=== PATIENT | female | born 1990 | race Caucasian/White ===

== ENCOUNTER 2016-05-01 19:25 | Emergency (ER) | payer OTHER ==
[2016-05-01 20:57] VITALS: BP 122/68; PULSE 93; RESP 16; TEMP 97.4
[2016-05-01 21:08] LABS: Appearance,Urine Clear (Clear); Bacteria,Urine Rare /hpf; Bilirubin,Urine Negative (Negative); Glucose,Urine (UA) Negative (Negative); Ketones,Urine Trace (Negative); Leukocyte Esterase,Urine Trace (Negative); Mucus,Urine Many /hpf; Nitrite,Urine Negative (Negative); PH, Urine 5.5 (5.0-8.0); Particle Count 6431; Protein,Urine Trace (Negative); RBC,Urine 7 /hpf (0-5); Specific Gravity,Urine 1.021 (1.001-1.035); Squamous Epithelial Cell,Urine 3 /hpf (0-4); UA Billing (MACRO vs. MICRO) MICRO; WBC,Urine 1 /hpf (0-5)
[2016-05-01] MEDS ORDERED: AMITRIPTYLINE HCL 50 MG TAB PO STA (21:08)
[2016-05-01] MEDS ORDERED: HYDROcodone/APAP 5-325MG 1 EACH TAB PO STA (21:09)
[2016-05-01] MEDS ORDERED: LORazepam 1 MG TAB PO STA (21:09)
--- NOTE | 2016-05-01 21:17 | ED ---
General Adult HPI - General Chief complaint: Recheck/Abnormal Lab/Rx Stated complaint: fibromyalgia,IBS Time Seen by Provider: 05/01/16 20:37 Source: patient, RN notes reviewed Mode of arrival: wheelchair Limitations: no limitations - History of Present Illness Initial comments: Peripheral female presents emergency Department chief complaint of interstitial cystitis. Patient states she has a chronic problem. Patient states that she is in between urologist at this time as she states her previous left the practice. Patient states she has an appointment in [facility] specialist. Patient states her point on Thursday. Patient states that she started having pain earlier today very consistent with her symptoms. Patient states she has been out of her medications which includes Vesicare, Elavil and tramadol patient has no nausea vomiting diarrhea constipation. Patient states that she has dysuria. No fevers no chills. No vaginal bleeding or vaginal discharge. Patient denies any chance . - Related Data Home Medications Medication Instructions Recorded Confirmed Acyclovir 2,000 mg PO DAILY PRN 05/01/16 05/01/16 Amitriptyline HCl [Elavil] 50 mg PO HS 05/01/16 05/01/16 Diazepam [Valium] 10 mg VAGINAL BID PRN 05/01/16 05/01/16 Lidocaine 5% Patch [Lidoderm] 1 patch TOPICAL DAILY PRN 05/01/16 05/01/16 Ondansetron [Zofran ODT] 4 mg PO BID PRN 05/01/16 05/01/16 Pnv with Ca,No.72/Iron/FA 1 tab PO DAILY 05/01/16 05/01/16 [ Plus Tablet] Polyethylene Glycol 3350 [Miralax] 17 gm PO DAILY 05/01/16 05/01/16 Previous Rx's Medication Instructions Recorded Solifenacin Succinate [Vesicare] 10 mg PO DAILY #30 tablet 03/18/15 Amitriptyline HCl [Elavil] 50 mg PO HS #7 tablet 05/01/16 Hydrocodone/Acetaminophen [[place] 1 tab PO Q6HR PRN #15 tab 05/01/16 5-325] Solifenacin Succinate [Vesicare] 10 mg PO DAILY #5 tablet 05/01/16 Allergies Allergy/AdvReac Type Severity Reaction Status Date / Time Penicillins Allergy Anaphylaxis Verified 05/01/16 20:38 Review of Systems ROS Statement: Those systems with pertinent positive or pertinent negative responses have been documented in the HPI. ROS Other: All systems not noted in ROS Statement are negative. Past Medical History Past Medical History: Fibromyalgia Additional Past Medical History / Comment(s): IBS interstitial cystitis History of Any Multi-Drug Resistant Organisms: None Reported Past Surgical History: No Surgical Hx Reported Additional Past Surgical History / Comment(s): bladder surgery x3, Past Psychological History: Anxiety, Bipolar, Depression Smoking Status: Never smoker Past Alcohol Use History: None Reported Past Drug Use History: Marijuana General Exam Limitations: no limitations General appearance: alert, in no apparent distress Head exam: Present: atraumatic, normocephalic, normal inspection Respiratory exam: Present: normal lung sounds bilaterally. Absent: respiratory distress, wheezes, rales, rhonchi, stridor Cardiovascular Exam: Present: regular rate, normal rhythm, normal heart sounds. Absent: systolic murmur, diastolic murmur, rubs, gallop, clicks GI/Abdominal exam: Present: soft, tenderness (Mild suprapubic), normal bowel sounds. Absent: distended, guarding, rebound, rigid Back exam: Absent: CVA tenderness (R), CVA tenderness (L) Course Vital Signs 05/01/16 05/01/16 19:45 20:56 Temperature 97.8 F 97.4 F L Pulse Rate 100 93 Respiratory 18 16 Rate Blood Pressure 133/63 122/68 O2 Sat by Pulse 100 100 Oximetry Medical Decision Making - Medical Decision Making Patient states that she has I see. Patient urinalysis does show blood consistent with her previous urinalysis. Patient be given pain medication at discharge. - Lab Data Lab Results 05/01/16 Range/Units 20:45 Urine Color Yellow Urine Appearance Clear (Clear) Urine pH 5.5 (5.0-8.0) Ur Specific [place] 1.021 (1.001-1.035) Urine Protein Trace H (Negative) Urine Glucose (UA) Negative (Negative) Urine Ketones Trace H (Negative) Urine Blood Small H (Negative) Urine Nitrate Negative (Negative) Urine Bilirubin Negative (Negative) Urine Urobilinogen 2.0 (<2.0) mg/dL Ur Leukocyte Esterase Trace H (Negative) Urine RBC 7 H (0-5) /hpf Urine WBC 1 (0-5) /hpf Ur Squamous Epith Cells 3 (0-4) /hpf Urine Bacteria Rare H (None) /hpf Urine Mucus Many H (None) /hpf Disposition Clinical Impression: Interstitial cystitis Disposition: HOME SELF-CARE Condition: Stable Instructions: Interstitial Cystitis (ED) Additional Instructions: Please return to the Emergency Department if symptoms worsen or any other concerns. Prescriptions: Amitriptyline HCl [Elavil] 50 mg PO HS #7 tablet Hydrocodone/Acetaminophen [[place] 5-325] 1 tab PO Q6HR PRN #15 tab PRN Reason: Pain Solifenacin Succinate [Vesicare] 10 mg PO DAILY #5 tablet Time of Disposition: 21:17
== END 2016-05-01 21:35 | disposition home or self-care (01) ==
LOC: EC 19:25
DX: N30.10 Interstitial cystitis (chronic) without hematuria (principal); M79.7 Fibromyalgia; F32.9 Major depressive disorder, single episode, unspecified; Z88.0 Allergy status to penicillin; Z79.899 Other long term (current) drug therapy
CPT/HCPCS: 81001; 99283

== ENCOUNTER 2016-09-27 22:47 | Emergency (ER) | payer OTHER ==
[2016-09-27] MEDS ORDERED: HYDROmorphone 2 MG/ML 1 ML SYRINGE IM STA (23:09)
[2016-09-27] MEDS ORDERED: IBUPROFEN 800 MG TAB PO STA (23:11)
[2016-09-27] MEDS ORDERED: LORazepam 1 MG TAB PO STA (23:11)
--- NOTE | 2016-09-27 23:13 | ED ---
General Adult HPI - General Chief complaint: Urogenital Stated complaint: Pelvic Pain Time Seen by Provider: 09/27/16 23:02 Source: patient, RN notes reviewed, old records reviewed Mode of arrival: wheelchair Limitations: no limitations - History of Present Illness Initial comments: This is a 26-year-old female ER for evaluation for this patient presents today for evaluation of pain. Patient is chronic pain, history of fibrosis or of interstitial cystitis history of back pain, history of autoimmune disease. Patient states she's used all conservative therapies at this time it is getting progressively worse. Fevers. Just complaining of increased generalized pain, back pain leg pain and pelvic pain. Denies dysuria, denies chance of , denies bleeding or discharge - Related Data Home Medications Medication Instructions Recorded Confirmed Acyclovir 2,000 mg PO DAILY PRN 05/01/16 05/01/16 Diazepam [Valium] 10 mg VAGINAL BID PRN 05/01/16 05/01/16 Lidocaine 5% Patch [Lidoderm] 1 patch TOPICAL DAILY PRN 05/01/16 05/01/16 Ondansetron [Zofran ODT] 4 mg PO BID PRN 05/01/16 05/01/16 Polyethylene Glycol 3350 [Miralax] 17 gm PO DAILY 05/01/16 05/01/16 Previous Rx's Medication Instructions Recorded Solifenacin Succinate [Vesicare] 10 mg PO DAILY #30 tablet 03/18/15 Amitriptyline HCl [Elavil] 50 mg PO HS #7 tablet 05/01/16 HYDROcodone/APAP 5-325MG [[place] 1 tab PO Q6HR PRN #30 tab 09/27/16 5-325] Allergies Allergy/AdvReac Type Severity Reaction Status Date / Time Penicillins Allergy Anaphylaxis Verified 05/01/16 20:38 Review of Systems ROS Statement: Those systems with pertinent positive or pertinent negative responses have been documented in the HPI. ROS Other: All systems not noted in ROS Statement are negative. Past Medical History Past Medical History: Fibromyalgia Additional Past Medical History / Comment(s): IBS interstitial cystitis History of Any Multi-Drug Resistant Organisms: None Reported Past Surgical History: No Surgical Hx Reported Additional Past Surgical History / Comment(s): bladder surgery x3, Past Psychological History: Anxiety, Bipolar, Depression Smoking Status: Never smoker Past Alcohol Use History: None Reported Past Drug Use History: Marijuana General Exam Limitations: no limitations General appearance: alert, in no apparent distress, anxious Head exam: Present: atraumatic, normocephalic, normal inspection Eye exam: Present: normal appearance, PERRL, EOMI. Absent: scleral icterus, conjunctival injection, periorbital swelling ENT exam: Present: normal exam, mucous membranes moist Neck exam: Present: normal inspection. Absent: tenderness, meningismus, lymphadenopathy Respiratory exam: Present: normal lung sounds bilaterally. Absent: respiratory distress, wheezes, rales, rhonchi, stridor Cardiovascular Exam: Present: regular rate, normal rhythm, normal heart sounds. Absent: systolic murmur, diastolic murmur, rubs, gallop, clicks GI/Abdominal exam: Present: soft, normal bowel sounds. Absent: distended, tenderness, guarding, rebound, rigid Extremities exam: Present: normal inspection, full ROM, normal capillary refill. Absent: tenderness, pedal edema, joint swelling, calf tenderness Back exam: Present: normal inspection Neurological exam: Present: alert, oriented X3, CN II-XII intact Psychiatric exam: Present: normal affect, normal mood Skin exam: Present: warm, dry, intact, normal color. Absent: rash Course Vital Signs 09/27/16 23:02 Temperature 98.1 F Pulse Rate 86 Respiratory 20 Rate Blood Pressure 123/64 O2 Sat by Pulse 100 Oximetry - Reevaluation(s) Reevaluation #1: 09/27/16 23:13 Patient has adequate pain control at this time Medical Decision Making - Medical Decision Making 22 for female here for evaluation of chronic pain, cystitis, chronic back pain and pelvic pain in, patient will be given pain control, urinalysis, patient can be discharged home Disposition Clinical Impression: Interstitial cystitis, Chronic pain Disposition: HOME SELF-CARE Condition: Good Instructions: Chronic Pain (ED) Prescriptions: HYDROcodone/APAP 5-325MG [[place] 5-325] 1 tab PO Q6HR PRN #30 tab PRN Reason: Pain Referrals: Nonstaff,Physician [Primary Care Provider] - 1-2 days
[2016-09-27 23:45] LABS: Amorphous Sediment,Urine Occasional /hpf; Appearance,Urine Turbid (Clear); Bacteria,Urine Occasional /hpf; Bilirubin,Urine Negative (Negative); Glucose,Urine (UA) Negative (Negative); Ketones,Urine Trace (Negative); Leukocyte Esterase,Urine Small (Negative); Mucus,Urine Few /hpf; Nitrite,Urine Negative (Negative); Particle Count 14954; Protein,Urine Trace (Negative); RBC,Urine 5 /hpf (0-5); Specific Gravity,Urine 1.025 (1.001-1.035); Squamous Epithelial Cell,Urine 19 /hpf (0-4); UA Billing (MACRO vs. MICRO) MICRO; WBC,Urine 13 /hpf (0-5)
[2016-09-28 00:31] VITALS: BP 107/58; PULSE 75; RESP 18; TEMP 97.9
== END 2016-09-28 00:43 | disposition home or self-care (01) ==
LOC: EC 22:47
DX: N30.10 Interstitial cystitis (chronic) without hematuria (principal); Z88.0 Allergy status to penicillin; Z79.899 Other long term (current) drug therapy
CPT/HCPCS: 99284; 96372; 81001; 81025; 87086; J1170

== ENCOUNTER 2017-03-28 04:27 | Emergency (ER) | payer OTHER ==
[2017-03-28 04:37] VITALS: TEMP 97.8
--- NOTE | 2017-03-28 05:01 | ED ---
General Adult HPI - General Chief complaint: Urogenital Stated complaint: Vaginal Pain Time Seen by Provider: 03/28/17 04:30 Source: patient, RN notes reviewed, old records reviewed Mode of arrival: ambulatory Limitations: no limitations - History of Present Illness Initial comments: 27-year-old female with history of chronic interstitial cystitis and chronic vaginal pain and pelvic pain presents for evaluation of this pain and dysuria. Patient was recently diagnosed with urinary tract infection. She completed a course of antibiotics. Pain is been present for greater than 2 months. She does see a female urologist at [facility], she has received nerve blocks in the past. She currently is using marijuana products for her primary pain control. Denies any change in her bowel habits. Patient did state she had an episode of nausea and vomiting associated with the pain. No upper abdominal pain. Pain is constant and burning in nature. She has not had intercourse in the past 2 months. She has no concerns for STDs. - Related Data Home Medications Medication Instructions Recorded Confirmed Diazepam [Valium] 10 mg VAGINAL BID PRN 05/01/16 03/05/17 Ondansetron [Zofran ODT] 4 mg PO BID PRN 05/01/16 03/05/17 Cyclobenzaprine [Flexeril] 10 mg PO DAILY PRN 03/05/17 03/05/17 Magnesium Oxide [Mag-Ox] 250 mg PO DAILY 03/05/17 03/05/17 Previous Rx's Medication Instructions Recorded Amitriptyline HCl [Elavil] 50 mg PO HS #7 tablet 05/01/16 Ciprofloxacin HCl [Cipro] 500 mg PO Q12HR #14 tablet 03/05/17 HYDROcodone/APAP 7.5-325MG [[place] 1 tab PO Q4H PRN #12 tab 03/05/17 7.5-325] Ibuprofen [Motrin] 600 mg PO Q8HR PRN #24 tab 03/28/17 Allergies Allergy/AdvReac Type Severity Reaction Status Date / Time Penicillins Allergy Anaphylaxis Verified 03/28/17 04:29 Review of Systems ROS Statement: Those systems with pertinent positive or pertinent negative responses have been documented in the HPI. ROS Other: All systems not noted in ROS Statement are negative. Past Medical History Past Medical History: Fibromyalgia Additional Past Medical History / Comment(s): IBS , interstitial cystitis History of Any Multi-Drug Resistant Organisms: None Reported Past Surgical History: No Surgical Hx Reported Additional Past Surgical History / Comment(s): bladder surgery x3, Past Psychological History: Anxiety, Bipolar, Depression Smoking Status: Never smoker Past Alcohol Use History: None Reported Past Drug Use History: Marijuana General Exam Limitations: no limitations General appearance: alert, in no apparent distress Head exam: Present: atraumatic, normocephalic Eye exam: Present: normal appearance, PERRL ENT exam: Present: normal exam Neck exam: Present: normal inspection. Absent: tenderness, meningismus Respiratory exam: Present: normal lung sounds bilaterally. Absent: respiratory distress Cardiovascular Exam: Present: regular rate, normal rhythm GI/Abdominal exam: Present: soft, tenderness (Suprapubic tenderness). Absent: distended, guarding, rebound External exam: Present: normal external exam. Absent: erythema, swelling Speculum exam: Absent: vaginal bleeding, tissue, laceration By manual exam: Present: other (Severe discomfort during the examination) Extremities exam: Present: normal inspection, normal capillary refill. Absent: pedal edema Neurological exam: Present: alert, oriented X3, CN II-XII intact. Absent: motor sensory deficit Psychiatric exam: Present: normal affect, normal mood Skin exam: Present: warm, dry, intact. Absent: cyanosis, diaphoretic Course Vital Signs 03/28/17 04:29 Temperature 97.8 F Pulse Rate 104 H Respiratory 17 Rate Blood Pressure 103/61 O2 Sat by Pulse 99 Oximetry Medical Decision Making - Medical Decision Making 27-year-old with chronic pelvic pain and chronic interstitial cystitis presents with similar pain complaint. She is unable to see her urologist secondary to the holiday. Urinalysis is obtained, there is rare bacteria, no leukocyte esterase, no white blood cells or red blood cells in the urine, urine culture is obtained and will await these results. Patient is given intramuscular Toradol in the emergency department. She is given a prescription for Motrin. She will continue her home remedies and follow up with her urologist in the next several days. - Lab Data Lab Results 03/28/17 03/28/17 Range/Units 04:45 04:45 Urine Color Yellow Urine Appearance Cloudy H (Clear) Urine pH 5.5 (5.0-8.0) Ur Specific [place] 1.021 (1.001-1.035) Urine Protein Trace H (Negative) Urine Glucose (UA) Negative (Negative) Urine Ketones Negative (Negative) Urine Blood Small H (Negative) Urine Nitrite Negative (Negative) Urine Bilirubin Negative (Negative) Urine Urobilinogen <2.0 (<2.0) mg/dL Ur Leukocyte Esterase Negative (Negative) Urine RBC <1 (0-5) /hpf Urine WBC 1 (0-5) /hpf Ur Squamous Epith Cells 8 H (0-4) /hpf Calcium Oxalate Crystal Occasional H (None) /hpf Urine Bacteria Rare H (None) /hpf Urine Mucus Many H (None) /hpf Urine HCG, Qual Not Detected (Not Detectd) Disposition Clinical Impression: Interstitial cystitis, Pain in female pelvis Disposition: HOME SELF-CARE Condition: Good Instructions: Pelvic Pain in Women (ED) Additional Instructions: Patient will follow-up with her urologist [facility]. Prescriptions: Ibuprofen [Motrin] 600 mg PO Q8HR PRN #24 tab PRN Reason: Pain Referrals: Leann Chao DO [Primary Care Provider] - 1-2 days Time of Disposition: 05:49
[2017-03-28 05:42] LABS: Appearance,Urine Cloudy (Clear); Bacteria,Urine Rare /hpf; Bilirubin,Urine Negative (Negative); Blood,Urine Small (Negative); Calcium Oxalate Crystals,Urine Occasional /hpf; Color,Urine Yellow; Glucose,Urine (UA) Negative (Negative); Ketones,Urine Negative (Negative); Leukocyte Esterase,Urine Negative (Negative); Mucus,Urine Many /hpf; Nitrite,Urine Negative (Negative); PH, Urine 5.5 (5.0-8.0); Protein,Urine Trace (Negative); RBC,Urine <1 /hpf (0-5); Specific Gravity,Urine 1.021 (1.001-1.035); Squamous Epithelial Cell,Urine 8 /hpf (0-4); Urobilinogen,Urine <2.0 mg/dL (<2.0); WBC,Urine 1 /hpf (0-5)
[2017-03-28] MEDS ORDERED: KETOROLAC 30 MG/ML 1 ML VIAL IM STA (05:42)
[2017-03-28 05:57] VITALS: BP 102/49; PULSE 75; RESP 18
== END 2017-03-28 05:57 | disposition home or self-care (01) ==
LOC: EC 04:27
DX: N30.10 Interstitial cystitis (chronic) without hematuria (principal); R11.2 Nausea with vomiting, unspecified; Z79.899 Other long term (current) drug therapy; Z88.0 Allergy status to penicillin
CPT/HCPCS: 81001; 81025; 87086; 99284; 96372; J1885

== ENCOUNTER 2017-11-27 18:47 | Emergency (ER) | payer OTHER ==
--- NOTE | 2017-11-27 19:19 | ED ---
Psych HPI - General Chief Complaint: Psychiatric Symptoms Stated Complaint: Anxiety Time Seen by Provider: 11/27/17 18:58 Source: patient, RN notes reviewed, old records reviewed Mode of arrival: ambulatory - History of Present Illness Initial Comments: Patient is a 27-year-old female presents emergency department today chief complaint of severe anxiety. She reports that she's had some suicidal thoughts but no specific intent. Patient states she is in chronic pain due to her interstitial cystitis. She reports that she could not see her neurologist specialist this week due to them being on vacation. Without having her typical injection as well as being out of her at-home cannabis oils she's been having increasing pain. She also reports that today she came in and her boyfriend was cheating on her. She reports that with all the symptoms of physical pain plus emotional stress she cut her left arm. Patient reports that she does see multiple psychiatrist and psychologist. She reports she called [facility] AND NO ONE WAS ABLE TO BE AVAILABLE. SHE THEN THOUGHT WITH A RECENT CUTTING SHE SHOULD BE SEEN HERE. - Related Data Home Medications Medication Instructions Recorded Confirmed Diazepam [Valium] 10 mg VAGINAL BID PRN 05/01/16 03/05/17 Ondansetron [Zofran ODT] 4 mg PO BID PRN 05/01/16 03/05/17 Cyclobenzaprine [Flexeril] 10 mg PO DAILY PRN 03/05/17 03/05/17 Magnesium Oxide [Mag-Ox] 250 mg PO DAILY 03/05/17 03/05/17 Previous Rx's Medication Instructions Recorded Amitriptyline HCl [Elavil] 50 mg PO HS #7 tablet 05/01/16 Ciprofloxacin HCl [Cipro] 500 mg PO Q12HR #14 tablet 03/05/17 HYDROcodone/APAP 7.5-325MG [[place] 1 tab PO Q4H PRN #12 tab 03/05/17 7.5-325] Ibuprofen [Motrin] 600 mg PO Q8HR PRN #24 tab 03/28/17 Allergies Allergy/AdvReac Type Severity Reaction Status Date / Time Penicillins Allergy Anaphylaxis Verified 03/28/17 04:29 Review of Systems ROS Statement: Those systems with pertinent positive or pertinent negative responses have been documented in the HPI. ROS Other: All systems not noted in ROS Statement are negative. Past Medical History Past Medical History: Fibromyalgia Additional Past Medical History / Comment(s): IBS , interstitial cystitis History of Any Multi-Drug Resistant Organisms: None Reported Past Surgical History: No Surgical Hx Reported Additional Past Surgical History / Comment(s): bladder surgery x3, Past Psychological History: Anxiety, Bipolar, Depression Smoking Status: Never smoker Past Alcohol Use History: None Reported Past Drug Use History: Marijuana General Exam - General Exam Comments Initial Comments: Patient is a 27-year-old female. Alert and oriented. No significant distress. Patient does appear to be very anxious. Limitations: no limitations General appearance: alert, in no apparent distress Head exam: Present: atraumatic, normocephalic, normal inspection Eye exam: Present: normal appearance, PERRL, EOMI. Absent: scleral icterus, conjunctival injection, periorbital swelling ENT exam: Present: normal exam, mucous membranes moist Neck exam: Present: normal inspection. Absent: tenderness, meningismus, lymphadenopathy Respiratory exam: Present: normal lung sounds bilaterally. Absent: respiratory distress, wheezes, rales, rhonchi, stridor Cardiovascular Exam: Present: regular rate, normal rhythm, normal heart sounds. Absent: systolic murmur, diastolic murmur, rubs, gallop, clicks GI/Abdominal exam: Present: soft, normal bowel sounds. Absent: distended, tenderness, guarding, rebound, rigid Extremities exam: Present: normal inspection, full ROM, normal capillary refill , other (Is multiple superficial excoriations over the left forearm.). Absent: tenderness, pedal edema, joint swelling, calf tenderness Back exam: Present: normal inspection Neurological exam: Present: alert, oriented X3, CN II-XII intact Psychiatric exam: Present: normal mood, anxious. Absent: normal affect Skin exam: Present: warm, dry, intact, normal color. Absent: rash Course Vital Signs 11/27/17 18:52 Temperature 98.3 F Pulse Rate 102 H Respiratory 20 Rate Blood Pressure 109/65 O2 Sat by Pulse 100 Oximetry Medical Decision Making - Medical Decision Making 27-year-old female with history of anxiety presents today with chief complaint of anxiety and also pelvic pain. History of interstitial cystitis. This time urinalysis positive for blood. Consistent with IC. Discussed that I do not any narcotic pain medication. She was given 1 by mouth Ativan here after evaluated by EPS. She denies any suicidal intention. She's been under a lot of emotional stress with her family and boyfriend lately. Patient was evaluated by a PS and they feel the Patient is stable to be discharged home. At this time Patient will be discharged with close follow-up with her psychiatrist on Thursday. She'll be discharged with a friend. She is given IM Toradol for pain. Discussing Motrin and [id number] medication for pain this time. - Lab Data Lab Results 11/27/17 11/27/17 Range/Units 19:22 19:22 Urine Color Yellow Urine Appearance Cloudy H (Clear) Urine pH 5.5 (5.0-8.0) Ur Specific [place] 1.014 (1.001-1.035) Urine Protein Negative (Negative) Urine Glucose (UA) Negative (Negative) Urine Ketones Negative (Negative) Urine Blood Large H (Negative) Urine Nitrite Negative (Negative) Urine Bilirubin Negative (Negative) Urine Urobilinogen <2.0 (<2.0) mg/dL Ur Leukocyte Esterase Trace H (Negative) Urine RBC 23 H (0-5) /hpf Ur Squamous Epith Cells 1 (0-4) /hpf Urine Bacteria Rare H (None) /hpf Urine Mucus Rare H (None) /hpf Urine HCG, Qual Not Detected (Not Detectd) Urine Opiates Screen Detected H (NotDetected) Ur Oxycodone Screen Not Detected (NotDetected) Urine Methadone Screen Not Detected (NotDetected) Ur Propoxyphene Screen Not Detected (NotDetected) Ur Barbiturates Screen Not Detected (NotDetected) U Tricyclic Antidepress Detected H (NotDetected) Ur Phencyclidine Scrn Not Detected (NotDetected) Ur Amphetamines Screen Not Detected (NotDetected) U Methamphetamines Scrn Not Detected (NotDetected) U Benzodiazepines Scrn Detected H (NotDetected) Urine Cocaine Screen Not Detected (NotDetected) U Marijuana (THC) Screen Detected H (NotDetected) Disposition Clinical Impression: Anxiety, Interstitial cystitis (chronic) with hematuria Disposition: HOME SELF-CARE Condition: Good Instructions: Generalized Anxiety Disorder (ED) Additional Instructions: Patient adviseds follow-up with primary care physician and her specialist. Patient should keep that appointment on Thursday for psychiatrist. Return to the emergency department if any alarming signs or symptoms occur. Is patient prescribed a controlled substance at d/c from ED?: No Referrals: Leann Chao DO [Primary Care Provider] - 1-2 days Time of Disposition: 20:20
[2017-11-27 19:40] LABS: Appearance,Urine Cloudy (Clear); Bacteria,Urine Rare /hpf; Bilirubin,Urine Negative (Negative); Blood,Urine Large (Negative); Color,Urine Yellow; Glucose,Urine (UA) Negative (Negative); Ketones,Urine Negative (Negative); Leukocyte Esterase,Urine Trace (Negative); Mucus,Urine Rare /hpf; Nitrite,Urine Negative (Negative); PH, Urine 5.5 (5.0-8.0); Protein,Urine Negative (Negative); RBC,Urine 23 /hpf (0-5); Specific Gravity,Urine 1.014 (1.001-1.035); Squamous Epithelial Cell,Urine 1 /hpf (0-4); Urobilinogen,Urine <2.0 mg/dL (<2.0)
[2017-11-27] MEDS ORDERED: LORazepam 1 MG TAB PO STA (19:46)
[2017-11-27 19:53] LABS: Amphetamine Screen,Urine Not Detected (NotDetected); Barbiturate Screen,Urine Not Detected (NotDetected); Benzodiazepines Screen,Urine Detected (NotDetected); Cocaine Screen,Urine Not Detected (NotDetected); Methadone Screen, Urine Not Detected (NotDetected); Opiate Screen,Urine Detected (NotDetected); Oxycodone Screen, Urine Not Detected (NotDetected); Phencyclidine Screen,Urine Not Detected (NotDetected); Tricyclic Antidepressant,Urine Detected (NotDetected); Urn Cannabinoid Scrn Detected (NotDetected)
[2017-11-27] MEDS ORDERED: KETOROLAC 60 MG/2 ML VIAL IM STA (20:01)
[2017-11-27 20:43] VITALS: BP 112/84; PULSE 63; RESP 17; TEMP 98.2
== END 2017-11-27 20:43 | disposition home or self-care (01) ==
LOC: EC 18:47
DX: N30.11 Interstitial cystitis (chronic) with hematuria (principal); F41.9 Anxiety disorder, unspecified; S50.812A Abrasion of left forearm, initial encounter; R45.851 Suicidal ideations; Z63.79 Other stressful life events affecting family and household; Z88.0 Allergy status to penicillin; Z79.899 Other long term (current) drug therapy; X78.9XXA Intentional self-harm by unspecified sharp object, initial encounter
CPT/HCPCS: 99284 ×2; 96372 ×2; 81001; 81025; 80306; 87086; J1885

== ENCOUNTER 2018-02-15 18:32 | Emergency (ER) | payer OTHER ==
[2018-02-15 18:50] VITALS: TEMP 97.5
[2018-02-15] MEDS ORDERED: SODIUM CHLORIDE 0.9% 1,000 ML IV STA (21:30)
[2018-02-15] MEDS ORDERED: KETOROLAC 30 MG/ML 1 ML VIAL IVP STA (21:31)
[2018-02-15 22:05] LABS: Amorphous Sediment,Urine Rare /hpf; Appearance,Urine Cloudy (Clear); Bilirubin,Urine Negative (Negative); Blood,Urine Negative (Negative); Color,Urine Light Yellow; Glucose,Urine (UA) Negative (Negative); Ketones,Urine 1+ (Negative); Leukocyte Esterase,Urine Small (Negative); Mucus,Urine Rare /hpf; Nitrite,Urine Negative (Negative); PH, Urine 6.5 (5.0-8.0); Protein,Urine Negative (Negative); RBC,Urine 1 /hpf (0-5); Specific Gravity,Urine 1.006 (1.001-1.035); Squamous Epithelial Cell,Urine 3 /hpf (0-4); Urobilinogen,Urine <2.0 mg/dL (<2.0); WBC,Urine 3 /hpf (0-5)
[2018-02-15 22:36] LABS: Basophils % (A) 0 %; Eosinophils # (A) 0.1 k/uL (0-0.7); Eosinophils % (A) 1 %; HCT 40.4 % (34.0-46.0); HGB 13.1 gm/dL (11.4-16.0); Lymphocytes # (A) 2.9 k/uL (1.0-4.8); Lymphocytes % (A) 39 %; MCH 29.5 pg (25.0-35.0); MCHC 32.5 g/dL (31.0-37.0); MCV 90.5 fL (80.0-100.0); Mean Platelet Volume 6.6; Monocytes # (A) 0.4 k/uL (0-1.0); Monocytes % (A) 5 %; Neutrophils # (A) 3.9 k/uL (1.3-7.7); Neutrophils % (A) 53 %; Platelet Count 316 k/uL (150-450); RBC 4.46 m/uL (3.80-5.40); RDW 12.9 % (11.5-15.5); WBC 7.3 k/uL (3.8-10.6)
[2018-02-15 22:48] LABS: ALT 26 U/L (9-52); AST 35 U/L (14-36); Albumin 4.9 g/dL (3.5-5.0); Alkaline Phosphatase 78 U/L (38-126); Amylase <30 U/L (30-110); Anion Gap 11 mmol/L; Blood Urea Nitrogen 9 mg/dL (7-17); Calcium 10.3 mg/dL (8.4-10.2); Carbon Dioxide 24 mmol/L (22-30); Chloride 105 mmol/L (98-107); Glucose 75 mg/dL (74-99); Lipase 45 U/L (23-300); Potassium 4.8 mmol/L (3.5-5.1); Sodium 140 mmol/L (137-145); Total Bilirubin 0.6 mg/dL (0.2-1.3); Total Protein 7.7 g/dL (6.3-8.2)
[2018-02-15 23:27] LABS: Amphetamine Screen,Urine Not Detected (NotDetected); Barbiturate Screen,Urine Not Detected (NotDetected); Benzodiazepines Screen,Urine Detected (NotDetected); Cocaine Screen,Urine Not Detected (NotDetected); Methadone Screen, Urine Not Detected (NotDetected); Opiate Screen,Urine Not Detected (NotDetected); Oxycodone Screen, Urine Not Detected (NotDetected); Phencyclidine Screen,Urine Not Detected (NotDetected); Tricyclic Antidepressant,Urine Detected (NotDetected); Urn Cannabinoid Scrn Detected (NotDetected)
--- NOTE | 2018-02-15 23:55 | ED ---
General Adult HPI - General Chief complaint: Psychiatric Symptoms Stated complaint: pain all over Time Seen by Provider: 02/15/18 21:10 Source: patient Mode of arrival: ambulatory Limitations: no limitations - History of Present Illness Initial comments: 28-year-old female patient presents to the emergency department today with complaints of increased fibromyalgia and chronic interstitial cystitis pain and discomfort. Patient states that she is having generalized body aches and pain. States that she is also having some vaginal burning which is consistent with her usual symptoms from her interstitial cystitis. Patient states that she did start a new job and medication for anxiety and she is unsure if these things have exacerbated her symptoms. Patient states she has not taking anything for pain or discomfort. She states that she did develop some nausea and vomiting today. States that she vomited up a black substance this morning but denies any hematemesis. She has been able to keep down food and fluid. She denies any diarrhea with this. States she does have chronic constipation and does do enemas every 2 days for this. Patient also has an extensive psych history, states that she is having suicidal thoughts daily has no plan to take her life. Patient states that she generally has suicidal ideation on a daily basis. She does see Dr. Ferrari outpatient for management of her psychiatric medications. Patient denies any recent rash, shortness breath, chest pain, abdominal pain, back pain, numbness, tingling, dizziness, weakness, hematuria, dysuria, urinary urgency, urinary frequency, headache, visual changes, or any other complaints. She denies any abnormal vaginal bleeding or discharge. Denies any concern for sexually transmitted infections. - Related Data Home Medications Medication Instructions Recorded Confirmed Diazepam [Valium] 10 mg VAGINAL BID PRN 05/01/16 03/05/17 Ondansetron [Zofran ODT] 4 mg PO BID PRN 05/01/16 03/05/17 Cyclobenzaprine [Flexeril] 10 mg PO DAILY PRN 03/05/17 03/05/17 Magnesium Oxide [Mag-Ox] 250 mg PO DAILY 03/05/17 03/05/17 Previous Rx's Medication Instructions Recorded Amitriptyline HCl [Elavil] 50 mg PO HS #7 tablet 05/01/16 Ciprofloxacin HCl [Cipro] 500 mg PO Q12HR #14 tablet 03/05/17 HYDROcodone/APAP 7.5-325MG [[place] 1 tab PO Q4H PRN #12 tab 03/05/17 7.5-325] Ibuprofen [Motrin] 600 mg PO Q8HR PRN #24 tab 03/28/17 Allergies Allergy/AdvReac Type Severity Reaction Status Date / Time Penicillins Allergy Anaphylaxis Verified 02/15/18 22:09 Review of Systems ROS Statement: Those systems with pertinent positive or pertinent negative responses have been documented in the HPI. ROS Other: All systems not noted in ROS Statement are negative. Past Medical History Past Medical History: Fibromyalgia Additional Past Medical History / Comment(s): IBS , interstitial cystitis History of Any Multi-Drug Resistant Organisms: None Reported Past Surgical History: No Surgical Hx Reported Additional Past Surgical History / Comment(s): bladder surgery x3, Past Psychological History: Anxiety, Bipolar, Depression Smoking Status: Never smoker Past Alcohol Use History: None Reported Past Drug Use History: Marijuana General Exam Limitations: no limitations General appearance: alert, in no apparent distress, other (This is a well- developed, well-nourished adult female patient in no acute distress. Vital signs upon presentation are temperature 97.5F, pulse 111, respirations 18, blood pressure 120/80, pulse ox 100% on room air.) Eye exam: Present: normal appearance, PERRL, EOMI. Absent: scleral icterus, conjunctival injection, periorbital swelling ENT exam: Present: normal exam, normal oropharynx, mucous membranes moist Respiratory exam: Present: normal lung sounds bilaterally. Absent: respiratory distress, wheezes, rales, rhonchi, stridor Cardiovascular Exam: Present: regular rate, normal rhythm, normal heart sounds. Absent: systolic murmur, diastolic murmur, rubs, gallop, clicks GI/Abdominal exam: Present: soft, normal bowel sounds. Absent: distended, tenderness, guarding, rebound, rigid Neurological exam: Present: alert, oriented X3, CN II-XII intact Psychiatric exam: Present: normal affect, normal mood, suicidal ideation. Absent: homicidal ideation Skin exam: Present: warm, dry, intact, normal color. Absent: rash Course Vital Signs 02/15/18 02/16/18 02/16/18 18:44 00:01 02:24 Temperature 97.5 F L Pulse Rate 111 H 72 85 Respiratory 18 16 16 Rate Blood Pressure 120/80 112/56 126/82 O2 Sat by Pulse 100 100 100 Oximetry Medical Decision Making - Medical Decision Making 28-year-old female patient presents to the emergency department today for evaluation of nausea, vomiting, generalized body aches, and suicidal ideation. Physical examination is unremarkable. Abdomen soft and nontender. She is not having diarrhea. No vomiting in the emergency department. Labs reviewed and are unremarkable. Patient is not . She was seen and evaluated by emergency psychiatric services. He is felt that she is safe for discharge home as she has no plan to take her life. She does have outpatient follow-up with both counseling and psychiatry services. She does have nausea medication at home. Return parameters were discussed in detail. She verbalizes understanding and agrees with this plan. - Lab Data Result diagrams: 02/15/18 22:15 02/15/18 22:15 Lab Results 02/15/18 02/15/18 02/15/18 Range/Units 20:59 20:59 20:59 WBC (3.8-10.6) k/uL RBC (3.80-5.40) m/uL Hgb (11.4-16.0) gm/dL Hct (34.0-46.0) % MCV (80.0-100.0) fL MCH (25.0-35.0) pg MCHC (31.0-37.0) g/dL RDW (11.5-15.5) % Plt Count (150-450) k/uL Neutrophils % % Lymphocytes % % Monocytes % % Eosinophils % % Basophils % % Neutrophils # (1.3-7.7) k/uL Lymphocytes # (1.0-4.8) k/uL Monocytes # (0-1.0) k/uL Eosinophils # (0-0.7) k/uL Basophils # (0-0.2) k/uL Sodium (137-145) mmol/L Potassium (3.5-5.1) mmol/L Chloride (98-107) mmol/L Carbon Dioxide (22-30) mmol/L Anion Gap mmol/L BUN (7-17) mg/dL Creatinine (0.52-1.04) mg/dL Est GFR (CKD-EPI)AfAm (>60 ml/min/1.73 sqM) Est GFR (CKD-EPI)NonAf (>60 ml/min/1.73 sqM) Glucose (74-99) mg/dL Calcium (8.4-10.2) mg/dL Total Bilirubin (0.2-1.3) mg/dL AST (14-36) U/L ALT (9-52) U/L Alkaline Phosphatase (38-126) U/L Total Protein (6.3-8.2) g/dL Albumin (3.5-5.0) g/dL Amylase (30-110) U/L Lipase (23-300) U/L Urine Color Light Yellow Urine Appearance Cloudy H (Clear) Urine pH 6.5 (5.0-8.0) Ur Specific [place] 1.006 (1.001-1.035) Urine Protein Negative (Negative) Urine Glucose (UA) Negative (Negative) Urine Ketones 1+ H (Negative) Urine Blood Negative (Negative) Urine Nitrite Negative (Negative) Urine Bilirubin Negative (Negative) Urine Urobilinogen <2.0 (<2.0) mg/dL Ur Leukocyte Esterase Small H (Negative) Urine RBC 1 (0-5) /hpf Urine WBC 3 (0-5) /hpf Ur Squamous Epith Cells 3 (0-4) /hpf Amorphous Sediment Rare H (None) /hpf Urine Mucus Rare H (None) /hpf Urine HCG, Qual Not Detected (Not Detectd) Urine Opiates Screen Not Detected (NotDetected) Ur Oxycodone Screen Not Detected (NotDetected) Urine Methadone Screen Not Detected (NotDetected) Ur Propoxyphene Screen Not Detected (NotDetected) Ur Barbiturates Screen Not Detected (NotDetected) U Tricyclic Antidepress Detected H (NotDetected) Ur Phencyclidine Scrn Not Detected (NotDetected) Ur Amphetamines Screen Not Detected (NotDetected) U Methamphetamines Scrn Not Detected (NotDetected) U Benzodiazepines Scrn Detected H (NotDetected) Urine Cocaine Screen Not Detected (NotDetected) U Marijuana (THC) Screen Detected H (NotDetected) 02/15/18 02/15/18 Range/Units 22:15 22:15 WBC 7.3 (3.8-10.6) k/uL RBC 4.46 (3.80-5.40) m/uL Hgb 13.1 (11.4-16.0) gm/dL Hct 40.4 (34.0-46.0) % MCV 90.5 (80.0-100.0) fL MCH 29.5 (25.0-35.0) pg MCHC 32.5 (31.0-37.0) g/dL RDW 12.9 (11.5-15.5) % Plt Count 316 (150-450) k/uL Neutrophils % 53 % Lymphocytes % 39 % Monocytes % 5 % Eosinophils % 1 % Basophils % 0 % Neutrophils # 3.9 (1.3-7.7) k/uL Lymphocytes # 2.9 (1.0-4.8) k/uL Monocytes # 0.4 (0-1.0) k/uL Eosinophils # 0.1 (0-0.7) k/uL Basophils # 0.0 (0-0.2) k/uL Sodium 140 (137-145) mmol/L Potassium 4.8 (3.5-5.1) mmol/L Chloride 105 (98-107) mmol/L Carbon Dioxide 24 (22-30) mmol/L Anion Gap 11 mmol/L BUN 9 (7-17) mg/dL Creatinine 0.72 (0.52-1.04) mg/dL Est GFR (CKD-EPI)AfAm >90 (>60 ml/min/1.73 sqM) Est GFR (CKD-EPI)NonAf >90 (>60 ml/min/1.73 sqM) Glucose 75 (74-99) mg/dL Calcium 10.3 H (8.4-10.2) mg/dL Total Bilirubin 0.6 (0.2-1.3) mg/dL AST 35 (14-36) U/L ALT 26 (9-52) U/L Alkaline Phosphatase 78 (38-126) U/L Total Protein 7.7 (6.3-8.2) g/dL Albumin 4.9 (3.5-5.0) g/dL Amylase <30 L (30-110) U/L Lipase 45 (23-300) U/L Urine Color Urine Appearance (Clear) Urine pH (5.0-8.0) Ur Specific [place] (1.001-1.035) Urine Protein (Negative) Urine Glucose (UA) (Negative) Urine Ketones (Negative) Urine Blood (Negative) Urine Nitrite (Negative) Urine Bilirubin (Negative) Urine Urobilinogen (<2.0) mg/dL Ur Leukocyte Esterase (Negative) Urine RBC (0-5) /hpf Urine WBC (0-5) /hpf Ur Squamous Epith Cells (0-4) /hpf Amorphous Sediment (None) /hpf Urine Mucus (None) /hpf Urine HCG, Qual (Not Detectd) Urine Opiates Screen (NotDetected) Ur Oxycodone Screen (NotDetected) Urine Methadone Screen (NotDetected) Ur Propoxyphene Screen (NotDetected) Ur Barbiturates Screen (NotDetected) U Tricyclic Antidepress (NotDetected) Ur Phencyclidine Scrn (NotDetected) Ur Amphetamines Screen (NotDetected) U Methamphetamines Scrn (NotDetected) U Benzodiazepines Scrn (NotDetected) Urine Cocaine Screen (NotDetected) U Marijuana (THC) Screen (NotDetected) Disposition Clinical Impression: Fibromyalgia, Gastroenteritis, Suicidal ideation Disposition: HOME SELF-CARE Condition: Good Instructions: Fibromyalgia (ED), Gastroenteritis (ED), Suicide Prevention (ED) Additional Instructions: Follow-up through primary care physician for recheck in 1-2 days. Return immediate for any new, worsening, or concerning symptoms. Is patient prescribed a controlled substance at d/c from ED?: No Referrals: Leann Chao DO [Primary Care Provider] - 1-2 days Time of Disposition: 02:09
[2018-02-16 00:03] VITALS: RESP 16
[2018-02-16 02:26] VITALS: BP 126/82; PULSE 85
== END 2018-02-16 02:24 | disposition home or self-care (01) ==
LOC: EC 18:32
DX: M79.7 Fibromyalgia (principal); K52.9 Noninfective gastroenteritis and colitis, unspecified; R45.851 Suicidal ideations; F41.9 Anxiety disorder, unspecified; Z87.19 Personal history of other diseases of the digestive system; Z79.899 Other long term (current) drug therapy; Z88.0 Allergy status to penicillin
CPT/HCPCS: 82075; 36415; 80053; 82150; 83690; 85025; 81001; 81025; 80306; 99284; 96374; 96361; J1885